=== PATIENT | female | born 1930 | race Hispanic/Latino ===

== ENCOUNTER 2017-08-11 11:33 | Day surgery (SDC) | payer OTHER ==
[2017-08-10 01:07] VITALS: BMI 22.9
[2017-08-11] MEDS ORDERED: Verapamil 2 ML ONE (12:32)
[2017-08-11] MEDS ORDERED: Midazolam 2 MG/2 ML VIAL ONE ×3 (12:33→15:45)
[2017-08-11] MEDS ORDERED: Nitroglycerin 50mg in D5W 50 MG/250 ML BOTTLE IV ONE (12:34)
[2017-08-11] MEDS ORDERED: Iodixanol 320 MG/ML 200 ML BOTTLE IV ONE (12:34)
[2017-08-11] MEDS ORDERED: Adenosine 90 mg/30mL IV ONE (14:38)
[2017-08-11] MEDS ORDERED: Iohexol 350mgl/ml 50 ML ONE (14:40)
[2017-08-11] MEDS ORDERED: Iodixanol 320 MG/ML 100 ML BOTTLE IV ONE (14:42)
[2017-08-11] MEDS ORDERED: Protamine 50mg/5mL Inj IV ONE (16:42)
[2017-08-11] MEDS ORDERED: Bacitracin 500 Units/gm Oint Foilpak UD TOP ONE (17:48)
[2017-08-11] MEDS ORDERED: Morphine 4 mg/ml ISec IVP PRN (18:41)
[2017-08-11 20:28] VITALS: BP 126/65; PULSE 76
--- NOTE | 2017-08-12 03:14 | CARDCATH ---
DATE: 08/11/2017 INDICATIONS: Jaci Yao is an 87-year-old female who presented to [facility] with complaints of substernal chest pain, shortness of breath and palpitation; was noted to be in new-onset Afib and was ruled in for ACS with positive troponins. Patient was subsequently transferred over for evaluation of non-ST elevation AK. 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 Radial artery hemostasis achieved with wrist band; complications - wrist band unable to achieve hemostasis. Had a mild subcutaneous hematoma requiring manual pressure and reapproximation of the wrist band. TECHNIQUES OF PROCEDURE: After obtaining informed consent, patient was brought to the cardiac cath suite in post-absorptive, non-sedated state. Patient was prepped and draped in the usual sterile fashion. A 2% lidocaine was used for infiltration of anesthesia. Using modified Seldinger technique, a 6-Norwegian sheath was introduced into the left radial artery. 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 At this point, procedure was subsequently switched to a femoral approach. A 6-Norwegian right femoral arterial access was obtained. Angiogram of the left and right coronary systems were obtained in different orthogonal views. LV gram was obtained in the PICHARDO view and pullback gradient was noted. HEMODYNAMIC FINDINGS: Left ventricular end diastolic pressure was 18 mmHg. There were no gradient noted upon the aortic valve pullback. There was no AI, no MR. Left ventricular ejection fraction estimated to be 50 to 55%. CORONARY ANATOMY: Left main large-sized vessel bifurcates into LAD and left circumflex coronary artery. Left circumflex is a large-sized vessel, runs in the AV groove and tortous vessel and gives off medium obtuse marginal branch. LAD is highly tortous vessel gives off two small diagonal branches, nonobstructive disease. 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 Normal ejection fraction. RECOMMENDATIONS: Patient is to be kept on anticoagulation for atrial fibrillation and ectatic RCA. Patient can be transferred back to [facility] in 3 hours. Continue patient on beta blockers, plus or minus calcium channel blockers. Thank you Dr. Bazan for letting me participate in the care of your patient. Raffy Gutiérrez MD cc: Sanju Bazan MD
== END 2017-08-11 23:15 | disposition short-term general hospital (02) ==
LOC: CATH 11:33 → 2RNO 17:25 → CATH 23:15
PROVIDERS: ATTEND Internal Medicine Interventional Cardiology
DX: I21.4 Non-ST elevation (NSTEMI) myocardial infarction (principal); I25.10 Atherosclerotic heart disease of native coronary artery without angina pectoris; I48.91 Unspecified atrial fibrillation; I10 Essential (primary) hypertension; E11.9 Type 2 diabetes mellitus without complications
CPT/HCPCS: 93458; 99152; 99153; C1760; C1769 ×2; C1887; C1894 ×2; J0153; J0360; J1644 ×2; J2250; J2720; J3010; J7040; Q9966; Q9967 ×2